=== PATIENT | female | born 1970 | race Asian ===

== ENCOUNTER 2019-06-09 11:51 | Emergency (ER) | payer OTHER ==
[~2019-06-09] VITALS: Ht 160 cm; Wt 53.1 kg
[2019-06-09 11:57] VITALS: BP 104/77
--- NOTE | 2019-06-09 12:09 | NUR ---
PATIENT AMBULATED TO BED 12
--- NOTE | 2019-06-09 12:09 | NUR ---
PT ARRIVED TO ED WITH SON FOR C/O ABD PAIN AND FEVER X 3DAYS. RADIATES TO ESOPHAGUS AND LOWER BAD. RATES PAIN 9/10 AND DESCRIBES IT PRESSURE. PT STATES SHE HAS SOME NASEUA. ABD IS SOFT, FLAT, AND HAS EPIGASTRIC TENDERNESS. VSS. NO VOMITTING. PT SON STATES SHE IS TAKING TYLENOL FOR FEVER AND DICYCLOERINE FOR ABD PAIN. SON AT BEDSIDE ALLERIGES: SULFA. DENIES PMH.
[2019-06-09] MEDS ORDERED: ONDANSETRON 4 MG/2 ML VIAL IVP ONE (12:40)
[2019-06-09] MEDS ORDERED: KETOROLAC 30 MG/ML VIAL IVP ONE (12:40)
--- NOTE | 2019-06-09 12:48 | NUR ---
Michelle duggan in ED - 06/09/19 at 1249 by [facility] RADIOLOG[facility] AT BEDSIDE.
--- NOTE | 2019-06-09 12:49 | NUR ---
RADIOLOGY AT BEDSIDE TO TRANSFER PT VIA WHEELCAHIR TO GET CT.
--- NOTE | 2019-06-09 13:00 | NUR ---
LAB AT BEDSIDE
[2019-06-09 13:15] LABS: APPEARANCE,URINE CLEAR (CLEAR); BILIRUBIN,URINE NEGATIVE (NEGATIVE); BLOOD, URINE 1+ (NEGATIVE); COLOR,URINE YELLOW (YELLOW); LEUKOCYTE ESTERASE ,URINE 1+ (NEGATIVE); NITRITE, URINE NEGATIVE (NEGATIVE); UGLUCOSE NEGATIVE (NEGATIVE)
[2019-06-09 13:17] LABS: BASOPHILS % (AUTO) 0.2 % (0.0-2.0); EOSINOPHILS # (AUTO) 0.5 K/uL (0-0.4); EOSINOPHILS % (AUTO) 9.8 % (0.0-4.0); HEMATOCRIT 41.9 % (36-48); HEMOGLOBIN 14.1 g/dL (12.0-16.0); LYMPHOCYTES # (AUTO) 1.3 K/uL (2.5-16.5); LYMPHOCYTES % (AUTO) 24.4 % (20.5-51.1); MEAN CORPUSCULAR HEMOGLOBIN 30 pg (27-31); MEAN CORPUSCULAR HGB CONC 34 g/dL (33-37); MEAN CORPUSCULAR VOLUME 90.3 fL (80-94); MONOCYTES # (AUTO) 0.3 K/uL (0.8-1.0); MONOCYTES % (AUTO) 5.6 % (1.7-9.3); NEUTROPHILS # (AUTO) 3.2 K/uL (1.8-7.7); PLATELET COUNT (AUTO) 144 K/uL (140-450); RED BLOOD CELL COUNT(AUTO) 4.64 MIL/uL (4.20-5.40); RED CELL DISTRIBUTION WIDTH 12.3 % (11.6-13.7); WHITE BLOOD COUNT (AUTO) 5.4 K/uL (4.8-10.8)
[2019-06-09 13:27] LABS: ANION GAP 10.4 (8-16); CARBON DIOXIDE 29.4 mmol/L (21-32); CREATININE 0.6 mg/dL (0.6-1.3); POTASSIUM 3.8 mmol/L (3.5-5.1)
[2019-06-09 13:34] LABS: ALBUMIN 3.9 g/dL (3.4-5.0); TOTAL BILIRUBIN 2.7 mg/dL (0.0-1.0)
[2019-06-09 14:15] VITALS: BP 104/77
--- NOTE | 2019-06-09 14:15 | NUR ---
Patient discharged with v/s stable. Written and verbal after care instructions given and explained. Patient alert, oriented and verbalized understanding of instructions. Ambulatory with steady gait. All questions addressed prior to discharge. ID band removed. Patient advised to follow up with PMD. Rx of MACROBID AND PRILOSEC given. Patient educated on indication of medication including possible reaction and side effects. Opportunity to ask questions provided and answered.
== END 2019-06-09 14:15 | disposition home or self-care (01) ==
LOC: MED 11:51
DX: K29.70 Gastritis, unspecified, without bleeding (principal); N39.0 Urinary tract infection, site not specified
CPT/HCPCS: 36415; 74176; 80053; 81001; 81025; 83690; 85025; 87086; 96374; 96375; 99284; J1885; J2405

== ENCOUNTER 2019-09-28 09:15 | Emergency (ER) | payer OTHER ==
[~2019-09-28] VITALS: Ht 162.6 cm; Wt 52.2 kg
[2019-09-28 09:20] VITALS: BP 101/62
--- NOTE | 2019-09-28 09:33 | NUR ---
C/O 5TH DIGIT OF L HAND PAIN S/P LAC WOUND WHILE CUTTING/COOKING X 3 DAYS AGO. WOUND APPEARS TO BE CLOSED BUT PT STATES HAS BEEN SQUEEZING THE TIP OF FINGER AND BLOOD COMES OUT. MILD SWELLING. ERYTHEMA TO DISTAL FINGER --PT STATES SHE USED [employer] SOLUTION THAT IS RED (STATES IT IS SIMILAR TO NEOSPORIN). FULL ROM OF MOTION. +CSM. PAIN 8/10. STATES NUMBNESS AND TINGLING RADIATING FROM LAC SITE UP TO ARM. PT CONCERNED BECAUSE STATES HER DOG HAS BEEN LICKING HER HANDS ALTHOUGH SHE DOES WASH HER HAND AFTERWARDS. UNKNOWN LAST TDAP. MED HX: DENIES
--- NOTE | 2019-09-28 09:33 | NUR ---
PATIENT AMBULATED TO BED 4.
--- NOTE | 2019-09-28 09:46 | NUR ---
DR RANGEL EVALUATING PT AT BEDSIDE
--- NOTE | 2019-09-28 09:51 | NUR ---
EMT AT BEDSIDE FOR WOUND CARE
[2019-09-28] MEDS ORDERED: NEOMYCIN/POLYMYXIN/BACITRACIN 0.9 GM/1 PKT TP ONE ×2 (09:58→10:15)
[2019-09-28] MEDS: KETOROLAC 60 MG/2 ML VIAL IM ONE ×2 (10:06→10:10)
[2019-09-28 10:23] VITALS: BP 100/60
--- NOTE | 2019-09-28 10:24 | NUR ---
Patient discharged with v/s stable. Written and verbal after care instructions given and explained. Patient alert, oriented and verbalized understanding of instructions. Ambulatory with steady gait. All questions addressed prior to discharge. ID band removed. Patient advised to follow up with PMD. Rx of IBU given. Patient educated on indication of medication including possible reaction and side effects. Opportunity to ask questions provided and answered.
== END 2019-09-28 10:24 | disposition home or self-care (01) ==
LOC: MED 09:15
DX: S61.217A Laceration without foreign body of left little finger without damage to nail, initial encounter (principal); W26.8XXA Contact with other sharp object(s), not elsewhere classified, initial encounter; Y93.89 Activity, other specified; Y92.89 Other specified places as the place of occurrence of the external cause; Y99.8 Other external cause status
CPT/HCPCS: 90471; 90715; 99283; J1885

== ENCOUNTER 2023-08-02 18:10 | Emergency (ER) | payer OTHER ==
[~2023-08-02] VITALS: Ht 157.5 cm; Wt 59.9 kg
[2023-08-02 18:19] VITALS: BP 122/70; PULSE 76; RESP 18; TEMP 99; O2SAT 98
[2023-08-02] MEDS ORDERED: LIDOCAINE MPF 1% 10 MG/ML VIAL INJ ONE (19:40)
[2023-08-02] MEDS ORDERED: BACI-418 TP (20:06)
[2023-08-02] MEDS ORDERED: IBUP-2213 PO (20:06)
[2023-08-02] MEDS ORDERED: IBUPROFEN 600 MG TAB PO ONE (20:10)
[2023-08-02] MEDS ORDERED: BACITRACIN OINT 500 UNITS/GM PKT TP ONE (20:10)
== END 2023-08-02 20:56 | disposition home or self-care (01) ==
LOC: MED 18:10
DX: S81.011A Laceration without foreign body, right knee, initial encounter (principal); S91.311A Laceration without foreign body, right foot, initial encounter; R03.0 Elevated blood-pressure reading, without diagnosis of hypertension; Z79.1 Long term (current) use of non-steroidal anti-inflammatories (NSAID); Z79.2 Long term (current) use of antibiotics; Z88.2 Allergy status to sulfonamides; W01.198A Fall on same level from slipping, tripping and stumbling with subsequent striking against other object, initial encounter; Y93.89 Activity, other specified; Y92.096 Garden or yard of other non-institutional residence as the place of occurrence of the external cause; Y99.8 Other external cause status
CPT/HCPCS: 12001; 73562; 73630; 99284; J2001

== ENCOUNTER 2023-10-23 15:47 | Emergency (ER) | payer OTHER ==
[~2023-10-23] VITALS: Ht 157.5 cm; Wt 59.0 kg
[~2023-10-23 15:47] MED LIST: BACI-418 TP; IBUP-2213 PO
[2023-10-23 16:00] VITALS: BP 107/65; PULSE 83; RESP 16; TEMP 98.6; O2SAT 98
[2023-10-23] MEDS ORDERED: IBUP-2213 PO (17:08)
[2023-10-23] MEDS ORDERED: AMOX500C25 PO (17:08)
[2023-10-23] MEDS: KETOROLAC 30 MG/ML VIAL IM ONE (17:29)
== END 2023-10-23 17:48 | disposition home or self-care (01) ==
LOC: MED 15:47
DX: K11.5 Sialolithiasis (principal); K04.7 Periapical abscess without sinus; Z88.2 Allergy status to sulfonamides; Z79.899 Other long term (current) drug therapy
CPT/HCPCS: 96372; 99284; J1885

== ENCOUNTER 2023-12-24 12:02 | Emergency (ER) | payer OTHER ==
[~2023-12-24] VITALS: Ht 154.9 cm; Wt 59.4 kg
[~2023-12-24 12:02] MED LIST changes: +AMOX500C25 PO
[2023-12-24 12:22] VITALS: BP 123/73; PULSE 71; RESP 17; TEMP 98.8; O2SAT 97
[2023-12-24 13:57] LABS: APPEARANCE,URINE CLEAR (CLEAR); BILIRUBIN,URINE NEGATIVE (NEGATIVE); BLOOD, URINE 1+ (NEGATIVE); COLOR,URINE YELLOW (YELLOW); LEUKOCYTE ESTERASE ,URINE NEGATIVE (NEGATIVE); NITRITE, URINE NEGATIVE (NEGATIVE); PROTEIN,URINE NEGATIVE (NEGATIVE); UGLUCOSE NEGATIVE (NEGATIVE); UROBILINOGEN,URINE 0.2 EU/dL (0.2 - 1)
[2023-12-24 14:51] LABS: WBC,URINE 0-5 /HPF (0-5)
[2023-12-24 14:52] LABS: BACTERIA,URINE FEW /HPF (None Seen); SQUAMOUS EPITHELIAL CELL,UR 0-3 (FEW) /LPF (0-3 (FEW))
[2023-12-24 15:19] LABS: BASOPHILS # (AUTO) 0.1 K/uL (0.00-0.22); BASOPHILS % (AUTO) 0.9 % (0.0-2.0); EOSINOPHILS # (AUTO) 0.1 K/uL (0-0.4); EOSINOPHILS % (AUTO) 1.3 % (0.0-4.0); HEMATOCRIT 42.6 % (36-48); HEMOGLOBIN 14.5 g/dL (12.0-16.0); LYMPHOCYTES # (AUTO) 1.7 K/uL (2.5-16.5); LYMPHOCYTES % (AUTO) 28.8 % (20.5-51.1); MEAN CORPUSCULAR HEMOGLOBIN 31 pg (27-31); MEAN CORPUSCULAR HGB CONC 34 g/dL (33-37); MEAN CORPUSCULAR VOLUME 89.2 fL (80-94); MONOCYTES # (AUTO) 0.5 K/uL (0.8-1.0); MONOCYTES % (AUTO) 7.6 % (1.7-9.3); NEUTROPHILS # (AUTO) 3.7 K/uL (1.8-7.7); NEUTROPHILS % (AUTO) 61.4 % (42.2-75.2); PLATELET COUNT (AUTO) 139 K/uL (140-450); RED BLOOD CELL COUNT(AUTO) 4.77 MIL/uL (4.20-5.40)
[2023-12-24 15:35] LABS: ANION GAP 11.3 (8-16); CALCIUM 8.9 mg/dL (8.5-10.1); CARBON DIOXIDE 27.5 mmol/L (21-32); CREATININE 0.5 mg/dL (0.6-1.3); POTASSIUM 3.8 mmol/L (3.5-5.1)
[2023-12-24 15:39] LABS: ALANINE AMINOTRANSFERASE 24 U/L (12-78); ALBUMIN 4.1 g/dL (3.4-5.0); ALKALINE PHOSPHATASE 84 U/L (50-136); ASPARTATE AMINOTRANSFERASE 15 U/L (15-37); BILIRUBIN,DIRECT 0.2 mg/dL (0.0-0.3); TOTAL BILIRUBIN 1.6 mg/dL (0.0-1.0); TOTAL PROTEIN, SERUM 7.3 g/dL (6.4-8.2)
[2023-12-24] MEDS ORDERED: CAPS1ADH5 TP (15:50)
[2023-12-24] MEDS ORDERED: DICL100G32 TP (15:57)
[2023-12-24] MEDS: KETOROLAC 30 MG/ML VIAL IM ONE (16:05)
== END 2023-12-24 16:05 | disposition home or self-care (01) ==
LOC: MED 12:02
DX: S20.219A Contusion of unspecified front wall of thorax, initial encounter (principal); S39.012A Strain of muscle, fascia and tendon of lower back, initial encounter; Z79.1 Long term (current) use of non-steroidal anti-inflammatories (NSAID); Z79.2 Long term (current) use of antibiotics; Z79.899 Other long term (current) drug therapy; Z88.2 Allergy status to sulfonamides; X58.XXXA Exposure to other specified factors, initial encounter; Y93.89 Activity, other specified; Y92.89 Other specified places as the place of occurrence of the external cause; Y99.8 Other external cause status
CPT/HCPCS: 36415; 71101; 72100; 80048; 80076; 81001; 84484; 85025; 96372; 99285; J1885